=== PATIENT | male | born 2000 | race Caucasian/White ===

== ENCOUNTER → 2021-06-30 | Outpatient (CLI) | payer OTHER | LOC: M RAD 10:27 | PROVIDERS: ATTEND Physician Assistant Medical | DX: N50.811 Right testicular pain (principal) ==

== ENCOUNTER 2021-08-28 13:13 | Emergency (ER) | payer OTHER ==
[~2021-08-28] VITALS: Ht 182.9 cm; Wt 93.7 kg
[2021-08-28] MEDS ORDERED: POLY510P14 (13:22)
[2021-08-28] MEDS ORDERED: DICY10CA13 (13:22)
[2021-08-28] MEDS ORDERED: FLUO20CA22 (13:22)
[2021-08-28] MEDS ORDERED: HYOS125TA (13:22)
[2021-08-28] MEDS ORDERED: VALA500T5 (13:22)
[2021-08-28] MEDS ORDERED: D 50CAP2 (13:22)
[2021-08-28 15:15] VITALS: BP 129/61
== END 2021-08-28 15:19 | disposition home or self-care (01) ==
LOC: M ED 13:13
DX: R10.9 Unspecified abdominal pain (principal); R11.2 Nausea with vomiting, unspecified; R19.7 Diarrhea, unspecified; K57.90 Diverticulosis of intestine, part unspecified, without perforation or abscess without bleeding; R01.1 Cardiac murmur, unspecified

== ENCOUNTER 2021-12-30 18:04 | Emergency (ER) | payer OTHER ==
[~2021-12-30] VITALS: Ht 182.9 cm; Wt 80.1 kg
[~2021-12-30 18:04] MED LIST: D 50CAP2; DICY10CA13; FLUO20CA22; HYOS125TA; POLY510P14; VALA500T5
[2021-12-30] MEDS ORDERED: OMEP40CA5 (18:12)
[2021-12-30] MEDS ORDERED: DICYCLOMINE INJ 20MG/2ML (J0500) IM ONE (21:10)
[2021-12-30] MEDS ORDERED: NS 1,000 ML IV ONE (21:10)
[2021-12-30] MEDS ORDERED: LOMOTIL 2.5MG/0.025MG TABLET PO ONE (21:10)
[2021-12-30 21:46] LABS: BASO % 0.7 % (0.0-1.0); EOS # 0.1 10^3/uL (0.0-0.5); HEMATOCRIT 44.2 % (42.0-52.0); HEMOGLOBIN 14.3 g/dl (13.5-17.5); LYMPH # 2.4 10^3/uL (1.5-5.0); LYMPH % 40.4 % (24.0-44.0); MEAN CORPUSCULAR HGB CONC 32.4 g/dl (32.0-36.5); MEAN CORPUSCULAR VOLUME 80.2 fl (80.0-96.0); MONO # 0.4 10^3/uL (0.0-0.8); MONO % 7.3 % (2.0-8.0); NEUTROPHILS % 50.4 % (36.0-66.0); PLATELET COUNT, AUTOMATED 218 10^3/uL (150-450); RED BLOOD COUNT 5.51 10^6/uL (4.30-6.10); WHITE BLOOD COUNT 5.9 10^3/uL (4.0-10.0)
[2021-12-30 22:02] LABS: AMPHETAMINES LEVEL URINE NEGATIVE (NEGATIVE); BARBITURATES URINE NEGATIVE (NEGATIVE); BENZODIAZEPINES URINE NEGATIVE (NEGATIVE); CANNABINOIDS URINE POSITIVE (NEGATIVE); COCAINE METABOLITE URINE NEGATIVE (NEGATIVE); METHADONE URINE NEGATIVE (NEGATIVE); OPIATES URINE NEGATIVE (NEGATIVE); PHENCYCLIDINE URINE NEGATIVE (NEGATIVE)
[2021-12-30 22:17] LABS: ACETAMINOPHEN LEVEL < 2.0 UG/ML (10.0-30.0); ALBUMIN 4.2 GM/DL (3.2-5.2); ALT/SGPT 17 U/L (12-78); BILIRUBIN,DIRECT 0.2 MG/DL (0.0-0.2); BILIRUBIN,TOTAL 0.7 MG/DL (0.2-1.0); BLOOD UREA NITROGEN 9 MG/DL (7-18); CALCIUM LEVEL 9.4 MG/DL (8.5-10.1); CARBON DIOXIDE LEVEL 23 MEQ/L (21-32); CHLORIDE LEVEL 111 MEQ/L (98-107); CREATININE FOR GFR 1.16 MG/DL (0.70-1.30); ETHYL ALCOHOL (ETHANOL) 0.004 % (0.000-0.010); GLUCOSE, FASTING 92 MG/DL (70-100); LIPASE 135 U/L (73-393); POTASSIUM SERUM 3.8 MEQ/L (3.5-5.1); SALICYLATE LEVEL < 1.7 MG/DL (5.0-30.0); SODIUM LEVEL 143 MEQ/L (136-145); TOTAL PROTEIN 7.4 GM/DL (6.4-8.2)
[2021-12-31 00:21] VITALS: BP 124/78
== END 2021-12-31 00:24 | disposition home or self-care (01) ==
LOC: M ED 18:04
DX: F32.9 Major depressive disorder, single episode, unspecified (principal); R10.9 Unspecified abdominal pain; Z79.899 Other long term (current) drug therapy
CPT/HCPCS: 80048; 80076; 80143; 80307; 82077; 83690; 84443; 85025; 87507; 96360; 96372; 99284; J0500